=== PATIENT | male | born 1975 | race Caucasian/White ===

== ENCOUNTER 2023-09-11 08:59 | Emergency (ER) | payer BC, SELFPAY ==
[2023-09-11 09:00] VITALS: BP 162/110
--- NOTE | 2023-09-11 10:11 | ED.GENMED ---
History of Present Illness
General
Chief Complaint: Headache
Source: patient
Exam Limitations: none
Time Seen by Provider: 09/11/23 09:44
Nursing documentation reviewed up to this point in time: agreed with
Travel History
Have you had any contact with someone who has COVID-19?: No
Do you have any symptoms of coronavirus? Fever > 100 degrees, chills, cough, shortness of breath, sore throat, loss of taste or smell, muscle aches, or headache?: No
History of Present Illness
History of Present Illness:
Patient is a 48-year-old presents to the ER for evaluation. Patient has had chronic sinus issues and pain for at least the past 18 months worse the past 6 months and very severe the past several weeks to months. He has been to numerous ENTs
including [facility]. He was seen by Dr. Brantley and also with Dr. agrawal He has had CAT scans of the sinuses. reports they have also been to rheumatology with no clear diagnosis. They have been told that this is possibly long COVID.
Based on CAT scan results the ENT does not feel that he should have pain but patient reports he does. He reports he has chronic sinus pain and headaches and can barely get through her day at work. He takes Motrin daily but they have been telling
him to avoid because he is takes it too much. He is on prednisone and budesonide recently by ENT he takes allergy medicine. He presents to the ER because he simply cannot deal with this pain. He complains now of headache pain in his face teeth
and head. He does complain to light sensitivity. He denies any associated fevers. He complains of a lot of left ear pain.
Patient presents with a CAT scan report from September 02, 2023. CT scan report reads partial opacification of middle ethmoidal air cells evidence of surgery partial resection of medial maxillary sinus bilaterally, asked coastal thickening of the left
maxillary sinus a large retention cyst in the base of the right maxillary sinus is slightly deviated septum to the right side. Patient surgery years ago for chronic sinusitis but the symptoms are nothing like a sinusitis pain in the past
Past History
Past History
ED Past Medical History: Valvular disease (MR mild to mod, last echo), Psychiatric (on Zoloft, Klonopin, Remeron) and Other (endocarditis in )
ED Past Surgical History: None
Social History
Tobacco: Non-smoker
Alcohol: Occasional
Personal:
Review of Systems
Review of Systems
Allergies reviewed?: Yes
All Other Systems: ROS reviewed and negative except as documented in HPI and ROS
Constitutional: Reports fatigue; Denies fever or chills
EENT: Reports other ( b/l ear pain worse on the left )
Respiratory: Reports no symptoms
Cardiac: Reports no symptoms
ABD/GI: Reports no symptoms
Musculoskeletal: Reports no symptoms
Skin: Reports no symptoms; Denies rash
Neurological: Reports headache and other (Light sensitive)
Psychiatric: Reports no symptoms
Phy Exam
General Physical Exam
General Presentation: no apparent distress
General age: appears stated age
General Skin: warm and dry
General Mental: alert
General Hydration: appears well hydrated
ENT Exam
ENT Exam: EOMI and neck supple
Additional ENT: b/l frontal and maxillary sinus pressure
Eye Exam
Eye Exam: PERRL and EOMI
Eye Exam General: PERRL: bilateral and EOM intact: bilateral
Pupil Exam: Bilateral: round and reactive
Neurological Exam
Neurological Exam: alert and oriented x3
Musculoskeletal Exam
Musculoskeletal Exam: full ROM
Skin Exam
Skin Exam: normal color and warm/dry
Psychiatric Exam
Psychiatric Exam: normal mood/affect
Course
Orders/Labs/Results
Orders:
Orders
09/11/23 10:04
CT Head W/o Iv Contrast Urgent
Comment:
Reason For Exam: headache
09/11/23 10:05
IV Insert/Care/Rem.- Treatment PRN
0.9% Sodium Chloride 1000 ml [Nss] 1,000 ml IV BOLUS
09/11/23 10:07
Metoclopramide [Reglan] 10 mg IV NOW STA
09/11/23 10:09
Diphenhydramine [Benadryl] 25 mg IV NOW STA
09/11/23 10:10
Ketorolac [Toradol] 15 mg IV NOW STA
09/11/23 10:22
Complete Blood Count/With Diff Urgent
Comprehensive Metabolic Panel Urgent
Abnormal Lab Results
09/11/23
10:22
Plt Count 406 H 10^3/uL
(130-400)
Abs Immat Gran (auto) 0.1 H 10^3/uL
(0-0.05)
Absolute Neuts (auto) 7.1 H 10^3/uL
(1.4-6.5)
Absolute Monos (auto) 0.8 H 10^3/uL
(0.1-0.6)
09/11/23 10:22
09/11/23 10:22
Vital Signs
Initial and Last Documented VS:
Initial Vital Signs
Temp Pulse Resp BP Pulse Ox
98.8 F 89 18 162/110 99
09/11/23 09:00 09/11/23 09:00 09/11/23 09:00 09/11/23 09:00 09/11/23 09:00
Last Documented Vital Signs
Temp Pulse Resp BP Pulse Ox
98.8 F 75 16 138/98 98
09/11/23 09:00 09/11/23 10:36 09/11/23 10:36 09/11/23 10:36 09/11/23 10:36
Meter Mechanic consulted with Physician
Meter Mechanic consulted with physician?: Yes
Name of Physician Consulted: Radha
MDM/Problems Addressed
Differential Diagnosis Includes:
Not limited to sinusitis less likely intracranial tumor/bleeding
MDM/Problems Addressed:
Patient is a 48-year-old male with chronic sinus issues for over 18 months. They have been to multiple ENTs and as documented on outpatient CAT scan does have some retention cyst and sinus issues. Patient presents today with extreme head pressure
earaches sinus congestion. Initially in triage notes state the patient feels hopeless patient is not suicidal he simply is tired of living with this and family reports that they are not getting anywhere with several specialist. They have been seen
by several ENTs and rheumatology. Patient presents awake alert he appears uncomfortable he does not now feel teeth pressure headache light sensitivity. He has never had a CAT scan of the brain CAT scan of the brain is negative for intracranial
hemorrhage but does show acute sinusitis
Patient presents as document uncomfortable however nontoxic-appearing no meningismus afebrile . Normal labs normal white count
patient was treated for headache with Reglan Benadryl fluids and Toradol feeling much better. Symptoms are likely sinus related but patient seem to have migraine symptoms from his problems. He appears much more comfortable. I did recommend that
they still follow-up with ENT. One of the ENTs that they did see did suggest possible surgery. They will also be given as requested local ENTs here at [place]. Will treat with Augmentin for the next 10 days. Patient has been taking Sudafed
without relief
Discussed return if any worsening of symptoms
*Radiology
Radiology exam reviewed: radiology read reviewed
*Pulse Oximetry
Patient hypoxic: no
*Critical Care Note
Total Time (30-74mins, 75-104mins- exclusive of procedures): Not Applicable
ED Attending Note
-
Portions of this chart may have been created with voice recognition software.� Occasional wrong word or��sound alike� substitutions may have occurred due to the inherent limitations of voice recognition software.
Discharge Plan
Departure
Patient Disposition: Home (Routine Discharge)
Date of Disposition: 09/11/23
Time of Disposition: 12:43
Patient with high blood pressure during this ER visit?: Yes
Discharge Problem:
Acute sinusitis
Instructions: Sinusitis, Adult (DC), Headache, Adult (DC), BLOOD PRESSURE
Prescriptions:
New
amoxicillin-pot clavulanate 875-125 mg tablet
1 tab PO BID Qty: 20 0RF
Referrals:
Albertina Sullivan MD [Family Provider] -
Jacob Hogue MD [Active] -
Karuna Gale MD [Active] -
Activity Restrictions/Additional Instructions:
As discussed a prescription for Augmentin was sent to your pharmacy take as directed. Stay well-hydrated.
Follow-up closely with ENT as discussed return if any worsening of symptoms
Interventions
Interventions:
*Risk Screen - Suicide Last Done: 09/11/23 09:00
*General Assessment Last Done: 09/11/23 09:00
*Neglect/Abuse Screening Last Done: 09/11/23 09:00
ED- Fall Risk Assessment Last Done: 09/11/23 09:57
*ED COVID-19 Vaccine History Last Done: 09/11/23 09:57
ED- Neurological Assessment Last Done: 09/11/23 09:57
Discharge Date and Time
Print Language: OMANI
[2023-09-11] MEDS: NSS 1000 IV (10:29)
[2023-09-11] MEDS: BENADRYL 25 MG IV (10:29)
[2023-09-11] MEDS: TORADOL 15 MG IV (10:29)
[2023-09-11] MEDS: REGLAN 10 MG IV (10:30)
[2023-09-11 10:36] VITALS: BP 138/98
[2023-09-11 10:39] LABS: % Basophils 0.7 % (0-2); % Eosinophils 2.4 % (0-6); % Immature Granulocytes 0.5 % (0-0.5); % Lymphocytes 22.6 % (20.5-51.1); % Monocytes 7.4 % (1.7-9.3); % Neutrophils 66.4 % (42.2-75.2); Absolute Basophils 0.1 10^3/uL (0-0.2); Absolute Eosinophils 0.3 10^3/uL (0-0.7); Absolute Immature Granulocytes 0.1 10^3/uL (0-0.05); Absolute Lymphocytes 2.4 10^3/uL (1.2-3.4); Absolute Monocytes 0.8 10^3/uL (0.1-0.6); Absolute Neutrophils 7.1 10^3/uL (1.4-6.5); Hematocrit 39.7 % (39.0-52.0); Hemoglobin 13.5 g/dL (13.0-18.0); Mean Corpuscular Volume 82.2 fL (80.0-94.0); Mean Platelet Volume 8.8 fL (7.4-10.4); Nucleated Red Blood Cells % 0 % (-); Platelet Count 406 10^3/uL (130-400); Red Blood Cell Count 4.83 10^6/uL (4.70-6.10); Red Cell Dist. Width 13.4 % (11.5-14.5); White Blood Cell Count 10.6 10^3/uL (4.8-10.8)
[2023-09-11 10:51] LABS: ALT (SGPT) 26 U/L (0-50); AST (SGOT) 27 U/L (17-59); Albumin 4.9 g/dl (3.5-5.0); Alkaline Phosphatase 53 U/L (38-126); Blood Urea Nitrogen 19 mg/dl (9-20); Calcium 9.8 mg/dl (8.4-10.2); Carbon Dioxide 26 mmol/L (22-30); Chloride 105 mmol/L (98-107); Estimated Creatinine Clearance 101 ml/min; Glucose 87 mg/dl (70-99); Potassium 4.2 mmol/L (3.5-5.1); Sodium 137 mmol/L (135-145); Total Bilirubin 0.4 mg/dl (0.2-1.3); Total Protein 7.8 g/dl (6.3-8.2); eGFR > 60.00
[2023-09-11 12:56] VITALS: BP 137/97
[2023-09-11] MEDS: AUGMENTIN 875 MG/125 MG 1 TABLET PO (12:56)
== END 2023-09-11 13:02 | disposition home or self-care (01) ==
LOC: EMR 08:59
PROVIDERS: Nurse Practitioner; EMERGENCY PHYSICIAN Emergency Medicine; FAMILY PHYSICIAN Internal Medicine
DX: J01.90 Acute sinusitis, unspecified (principal); R03.0 Elevated blood-pressure reading, without diagnosis of hypertension
CPT/HCPCS: 99284; 96374; 96375 ×2; 96361; 70450; 80053; 85025

== ENCOUNTER 2024-08-09 18:25 | Emergency (ER) | payer BC, SELFPAY ==
[2024-08-09 18:28] VITALS: BP 135/81
[2024-08-09 18:43] VITALS: BMI 31.3
[2024-08-09 18:59] LABS: % Basophils 0.3 % (0-2); % Eosinophils 0.6 % (0-6); % Immature Granulocytes 0.3 % (0-0.5); % Lymphocytes 10.1 % (20.5-51.1); % Monocytes 6.2 % (1.7-9.3); % Neutrophils 82.5 % (42.2-75.2); Absolute Eosinophils 0.1 10^3/uL (0-0.7); Absolute Lymphocytes 1.1 10^3/uL (1.2-3.4); Absolute Monocytes 0.7 10^3/uL (0.1-0.6); Absolute Neutrophils 8.9 10^3/uL (1.4-6.5); Hematocrit 42.6 % (39.0-52.0); Hemoglobin 14.1 g/dL (13.0-18.0); Mean Corp Hgb Conc. 33.1 g/dL (33.0-37.0); Mean Corpuscular Hgb 29.1 pg (27.0-31.0); Mean Platelet Volume 8.8 fL (7.4-10.4); Nucleated Red Blood Cells % 0 % (-); Platelet Count 347 10^3/uL (130-400); Red Blood Cell Count 4.84 10^6/uL (4.70-6.10); Red Cell Dist. Width 12.6 % (11.5-14.5); White Blood Cell Count 10.8 10^3/uL (4.8-10.8)
--- NOTE | 2024-08-09 19:01 | ED.GENMED ---
History of Present Illness
General
Chief Complaint: Abdominal Symptoms
Source: patient
Exam Limitations: none
Time Seen by Provider: 08/09/24 18:49
Nursing documentation reviewed up to this point in time: agreed with
History of Present Illness
History of Present Illness:
Patient states he woke around 1AM with severe n/v/d. Symptoms lasted for approx 12 hours. He was seen at and given zofran with some improvement. Labs revealed creat of 1.4 and he was advised to come to ED for suspected dehydration. States he
has been unable to eat or drink all day. `Reports mild diffuse abd. discomfort which has improved. Brought to ED by family for eval.
Past History
Past History
ED Past Medical History: Valvular disease (MR mild to mod, last echo), Psychiatric (on Zoloft, Klonopin, Remeron) and Other (endocarditis in )
ED Past Surgical History: Cardiac (ablation and pacemaker 06/2024)
Social History
Tobacco: Non-smoker
Alcohol: Occasional
Personal:
Phy Exam
General Physical Exam
General Presentation: well appearing
General age: appears stated age
General Skin: warm and dry
General Habitus: normal
General Mental: alert
Cardiovascular Exam
Cardiovascular Exam: regular rate/rhythm
Pulmonary Exam
Pulmonary Exam: chest non tender
Gastrointestinal Exam
Gastrointestinal Exam: soft, no organomegaly, no pulsatile mass, non distended and no cva tenderness
Palpation: generalized: Minimal tenderness
Musculoskeletal Exam
Musculoskeletal Exam: full ROM
Skin Exam
Skin Exam: normal color, warm/dry and no rash
Psychiatric Exam
Psychiatric Exam: normal mood/affect
Course
Orders/Labs/Results
Orders:
Orders
08/09/24 18:51
Complete Blood Count/With Diff Urgent
08/09/24 19:00
0.9% Sodium Chloride 1000 ml [Nss] 1,000 ml IV BOLUS
08/09/24 19:17
Comprehensive Metabolic Panel Urgent
Lipase Urgent
Urinalysis Reflex To Culture Urgent
Date Specimen was Collected: 08/09/24
Time Specimen was Collected: 19:15
Urine Microscopic Reflex Cult Urgent
08/09/24 20:30
Acetaminophen [Tylenol] 1,000 mg PO NOW STA
08/09/24 22:12
Potassium Chloride [KCl] 20 meq PO NOW STA
Abnormal Lab Results
08/09/24 08/09/24
18:51 19:17
Absolute Neuts (auto) 8.9 H 10^3/uL
(1.4-6.5)
Absolute Lymphs (auto) 1.1 L 10^3/uL
(1.2-3.4)
Absolute Monos (auto) 0.7 H 10^3/uL
(0.1-0.6)
Neutrophils % 82.5 H %
(42.2-75.2)
Lymphocytes % 10.1 L %
(20.5-51.1)
Potassium 3.3 L mmol/L
(3.5-5.1)
Carbon Dioxide 21 L mmol/L
(22-30)
BUN 22 H mg/dl
(9-20)
Ur Occult Blood Reflex 1+ A
(Negative)
Urine Bacteria (Reflex) Few A
(Negative)
Urine Albumin (Reflex) 2+ A
(Neg - Trace)
08/09/24 18:51
08/09/24 19:17
Vital Signs
Initial and Last Documented VS:
Initial Vital Signs
Temp Pulse Resp BP Pulse Ox
98.6 F 75 16 135/81 97
08/09/24 18:28 08/09/24 18:28 08/09/24 18:28 08/09/24 18:28 08/09/24 18:28
Last Documented Vital Signs
Temp Pulse Resp BP Pulse Ox
98.9 F 83 16 120/81 100
08/09/24 21:21 08/09/24 21:21 08/09/24 21:21 08/09/24 21:21 08/09/24 21:21
*Critical Care Note
Total Time (30-74mins, 75-104mins- exclusive of procedures): Not Applicable
ED Attending Note
-
Portions of this chart may have been created with voice recognition software.� Occasional wrong word or��sound alike� substitutions may have occurred due to the inherent limitations of voice recognition software.
Discharge Plan
Departure
Patient Disposition: Home (Routine Discharge)
Date of Disposition: 08/09/24
Time of Disposition: 22:13
Patient with high blood pressure during this ER visit?: No
Condition: Good
Covid-19: Not Applicable
Discharge Problem:
Vomiting, Diarrhea
Instructions: Diarrhea in teens and adults, Clear Liquid Diet, Nausea and Vomiting, Adult (DC)
Prescriptions:
New
ondansetron 4 mg tablet,disintegrating
4 mg PO TID PRN (Reason: nausea and vomiting) 3 Days Qty: 9 0RF
No Action
amoxicillin-pot clavulanate 875-125 mg tablet
1 tab PO BID Qty: 20 0RF
Referrals:
Albertina Sullivan MD [Family Provider] - Call in 1-3 days for appt
Stand Alone Forms: Return to Work
Interventions
Interventions:
*Risk Screen - Suicide Last Done: 08/09/24 18:31
*General Assessment Last Done: 08/09/24 20:14
*Neglect/Abuse Screening Last Done: 08/09/24 18:31
*ED- Fall Risk Assessment Last Done: 08/09/24 18:43
*ED COVID-19 Vaccine History Last Done: 08/09/24 18:43
*Nursing Disposition Last Done: 08/09/24 22:23
VB-Pubpnp-[id number] Assessment Last Done: 08/09/24 18:54
Discharge Date and Time
Discharge Date/Time: 08/09/24 22:24
Print Language: [email or web address]
[2024-08-09] MEDS: NSS 1000 IV (19:04)
[2024-08-09 19:29] LABS: Urine Albumin 2+ (Neg - Trace); Urine Bilirubin Negative (Negative); Urine Character Clear (Clear); Urine Color Yellow; Urine Glucose Negative (Negative); Urine Ketone Negative (Negative); Urine Leukocyte Negative (Negative); Urine Nitrite Negative (Negative); Urine Occult Blood 1+ (Negative); Urine Specific Gravity 1.025 (<1.030); Urine Urobilinogen Negative (Neg - 1+)
[2024-08-09 19:38] LABS: ALT (SGPT) 20 U/L (0-50); AST (SGOT) 22 U/L (17-59); Albumin 4.1 g/dl (3.5-5.0); Alkaline Phosphatase 42 U/L (38-126); Blood Urea Nitrogen 22 mg/dl (9-20); Calcium 8.4 mg/dl (8.4-10.2); Carbon Dioxide 21 mmol/L (22-30); Chloride 106 mmol/L (98-107); Estimated Creatinine Clearance 103 ml/min; Glucose 89 mg/dl (70-99); Lipase 53 U/L (23-300); Potassium 3.3 mmol/L (3.5-5.1); Sodium 138 mmol/L (135-145); Total Bilirubin 0.7 mg/dl (0.2-1.3); Total Protein 6.5 g/dl (6.3-8.2); Urine Red Blood Cell 0-2 /HPF (0-2); eGFR > 60.00
[2024-08-09 19:39] LABS: Urine Bacteria Few (Negative); Urine Mucus Moderate; Urine White Cell 0-2 /HPF (0-5)
[2024-08-09] MEDS: TYLENOL 1000 MG PO (21:19)
[2024-08-09 21:21] VITALS: BP 120/81
[2024-08-09] MEDS: KCL 20 MEQ PO (22:21)
== END 2024-08-09 22:24 | disposition home or self-care (01) ==
LOC: EMR 18:25
PROVIDERS: Emergency Medicine; Nurse Practitioner; EMERGENCY PHYSICIAN Emergency Medicine; FAMILY PHYSICIAN Internal Medicine
DX: R11.2 Nausea with vomiting, unspecified (principal); R19.7 Diarrhea, unspecified; R10.84 Generalized abdominal pain; Z95.0 Presence of cardiac pacemaker
CPT/HCPCS: 96360; 99284; 80053; 81003; 81015; 83690; 85025